=== PATIENT | female | born 1980 | race Two or more races ===

== ENCOUNTER 2017-02-14 07:13 | Outpatient (CLI) | payer MEDICAID | END 2017-02-14 07:14 | disposition home or self-care (01) | LOC: LAB.R 07:13 | PROVIDERS: ATTEND Family Medicine | DX: L98.8 Other specified disorders of the skin and subcutaneous tissue (principal) | CPT/HCPCS: 87070; 87077; 87205 ==

== ENCOUNTER 2017-04-01 10:19 | Day surgery (SDC) | payer MEDICAID ==
[2017-04-01] MEDS ORDERED: LACTATED RINGERS 1,000 ML IV ONE (10:36)
[2017-04-01 10:48] LABS: HCG UR QUAL NEGATIVE
[2017-04-01] MEDS ORDERED: LIDOCAINE-PF 2% 10 ML AMP SUBQ ONE (14:45)
[2017-04-01] MEDS ORDERED: SUCCINYLCHOLINE 200 MG/10 ML VIAL IVP ONE (14:45)
[2017-04-01] MEDS ORDERED: fentaNYL 100 MCG/2 ML VIAL IVP ONE (14:45)
[2017-04-01] MEDS ORDERED: DEXAMETHASONE 4 MG/ML VIAL IVP ONE (14:45)
[2017-04-01] MEDS ORDERED: ONDANSETRON 4 MG/2 ML VIAL IVP ONE (14:45)
[2017-04-01] MEDS ORDERED: PROPOFOL 200 MG/20 ML VIAL IVP ONE (14:45)
[2017-04-01] MEDS ORDERED: ROCURONIUM 50 MG/5 ML VIAL IVP ONE (14:45)
[2017-04-01] MEDS ORDERED: MIDAZOLAM 2 MG/2 ML VIAL IVP ONE (14:45)
[2017-04-01] MEDS ORDERED: BUPIVACAINE 0.5%-EPI 1:200000 PF 30 ML VIAL SUBQ ONE ×2 (15:05)
[2017-04-01] MEDS ORDERED: LIDOCAINE 1% 50 ML MDV SUBQ ONE ×2 (15:06)
[2017-04-01] MEDS ORDERED: HYDROGEN PEROXIDE 3% 473 ML BOTTLE TOP ONE (15:06)
[2017-04-01] MEDS ORDERED: THROMBIN (BOVINE) 5,000 UNIT VIAL TOP ONE (15:30)
[2017-04-01] MEDS ORDERED: ONDANSETRON 4 MG/2 ML VIAL ONE (15:53)
--- NOTE | 2017-04-01 15:59 | OPERATIVE REPORT ---
DATE OF SURGERY: 04/01/2017 00:00:00 SURGEON: Belkis Mtz MD. PREOPERATIVE DIAGNOSES 1. Perirectal fistula. 2. Anal skin tags. POSTOPERATIVE DIAGNOSES 1. Perirectal fistula. 2. Anal skin tags. NAME OF PROCEDURE: Excision of perirectal fistula and excision of rectal skin tags. INDICATION FOR PROCEDURE: This is a 36-year-old female who presented to my office complaining of drainage from her anus. Physical exam revealed a perirectal fistula and anal skin tag. She is being taken to the operating room for excision of the perirectal fissure and excision of anal skin tags. FINDINGS: After obtaining informed consent, she was brought into the operating room and positioned on the operating table in the prone position, taking note of pressure points. She was intubated by Anesthesia. SCD boots were applied. She was prepped and draped in the usual sterile fashion and a time-out was taken according to protocol. A fistulous opening was noted in the midline at the 12 o'clock position and a lacrimal probe was introduced. The external opening was also found in the midline in the 12 o'clock position. The fistulous tract was opened using electrocautery. Hemostasis was achieved with electrocautery. A single perianal skin tag was removed in the 12-o'clock position. She did have multiple perianal skin tags, but she also has underlying hemorrhoids and elected not to undergo hemorrhoidectomy. For this reason, these skin tags were not removed. The incisions were both closed with interrupted 3-0 Vicryl sutures, and 50 mL of local anesthetic was infiltrated. Hemostasis was noted to be achieved. Thrombin and Gelfoam were applied, as well as bacitracin and fluff and a dry dressing. The patient was extubated and taken to the recovery room in stable condition. ESTIMATED BLOOD LOSS: 10 mL. COMPLICATIONS: None. SPECIMENS: None. JOB #: [id number] EXT JOB #:[id number] [email or web address]
[2017-04-01] MEDS ORDERED: oxyCOD/ACETAMIN 5 MG/325 MG TABLET PO ONE (16:29)
[2017-04-01 16:44] VITALS: BP 135/82
== END 2017-04-01 10:20 | disposition home or self-care (01) ==
LOC: SDS 10:19
PROVIDERS: ATTEND Surgery
PROC: 0H89XZZ Division of Perineum Skin, External Approach (ICD-10-PCS; 2017-04-01)
PROC: 0DBQXZZ Excision of Anus, External Approach (ICD-10-PCS; principal; 2017-04-01 11:15)
DX: K60.4 Rectal fistula (principal); K64.4 Residual hemorrhoidal skin tags; F17.210 Nicotine dependence, cigarettes, uncomplicated
CPT/HCPCS: 46270; 81025; A9270; J7120

== ENCOUNTER 2017-05-06 07:52 | Outpatient (CLI) | payer OTHER ==
[2017-05-06 10:22] LABS: BASOPHILS # (AUTO) 0.1 10^3/uL (0.0-0.1); BASOPHILS % (AUTO) 0.8 %; EOSINOPHILS # (AUTO) 0.1 10^3/uL (0.0-0.7); HCT - HEMATOCRIT 36.3 % (37.0-47.0); HGB - HEMOGLOBIN 11.2 g/dL (12.0-16.0); LYMPHOCYTES # (AUTO) 4.1 10^3/uL (1.5-3.5); LYMPHOCYTES % (AUTO) 31.8 %; MEAN CORPUSCULAR HEMOGLOBIN 20.1 pg (27.0-31.0); MEAN CORPUSCULAR HGB CONC 30.7 g/dL (32.0-36.0); MEAN CORPUSCULAR VOLUME 65.5 fL (81.0-99.0); MEAN PLATELET VOLUME 8.3 fL (7.9-10.8); MONOCYTES % (AUTO) 8.1 %; NEUTROPHILS # (AUTO) 7.4 10^3/uL (1.5-6.6); NEUTROPHILS % (AUTO) 58.3 %; RED BLOOD COUNT 5.55 10^6/uL (4.20-5.40); UNCORRECTED WHITE BLOOD COUNT 12.7 x10^3/uL; WHITE BLOOD COUNT 12.7 x10^3/uL (4.8-10.8)
[2017-05-06 10:42] LABS: ALBUMIN/GLOBULIN RATIO 1.3 (1.0-2.2); BUN - BLOOD UREA NITROGEN 10 mg/dL (6-20); CALCIUM 8.9 mg/dL (8.5-10.3); CARBON DIOXIDE - CO2 23 mmol/L (21-32); CHLORIDE 103 mmol/L (101-111); CHOL/HDL RATIO 4.3 (<4.4); CHOLESTEROL 187 mg/dL; CREATININE 0.5 mg/dL (0.4-1.0); GFR - MDRD 141 (>89); GLUCOSE 91 mg/dL (70-100); HDL CHOLESTEROL 43 mg/dL; LDL/HDL RATIO 2.8 (<4.4); SODIUM 134 mmol/L (135-145); TOTAL PROTEIN 8.6 g/dL (6.7-8.2); TRIGLYCERIDES 118 mg/dL; VLDL CHOLESTEROL 24 mg/dL
== END 2017-05-06 07:53 | disposition home or self-care (01) ==
LOC: LAB 07:52
PROVIDERS: ATTEND Family Medicine
DX: Z00.00 Encounter for general adult medical examination without abnormal findings (principal); F17.210 Nicotine dependence, cigarettes, uncomplicated
CPT/HCPCS: 36415; 80053; 80061; 85025

== ENCOUNTER 2019-11-01 19:59 | Emergency (ER) | payer BC, OTHER ==
[2019-11-01 20:22] LABS: RAPID STREP SCREEN Negative (Negative)
--- NOTE | 2019-11-01 21:10 | ED Physician Documentation ---
PD HPI HEENT - Stated complaint Stated Complaint: SORE THROAT,COUGH, CONGESTION - Chief complaint Chief Complaint: Heent - History obtained from History obtained from: Patient - Additional information Additional information: Patient comes emergency department complaining of sore throat, cough, and headache for the last 2 days. Patient denies fever. She states that her elementary aged daughter has had similar symptoms, but is better now. Patient denies any nausea or vomiting. No abdominal pain. No chest pain. Patient states she is a smoker but otherwise is healthy. She does not have any known lung issues.Patient denies any sputum production with her cough. No other complaints at this time.She states she does not have any known exposures to influenza or coronavirus. She states her daughter has not been diagnosed with anything specifically and was told that she most likely has "a virus". Review of Systems Ten Systems: 10 systems reviewed and negative Constitutional: reports: Reviewed and negative Eyes: reports: Reviewed and negative Ears: reports: Reviewed and negative Nose: reports: Rhinorrhea / runny nose, Congestion Throat: reports: Sore throat Cardiac: reports: Reviewed and negative Respiratory: reports: Cough GI: reports: Reviewed and negative : reports: Reviewed and negative Skin: reports: Reviewed and negative Musculoskeletal: reports: Reviewed and negative Neurologic: reports: Reviewed and negative Psychiatric: reports: Reviewed and negative Endocrine: reports: Reviewed and negative Immunocompromised: reports: Reviewed and negative PD PAST MEDICAL HISTORY - Past Medical History Past Medical History: Yes Cardiovascular: Hypertension Respiratory: None Endocrine/Autoimmune: None GI: GERD, Hemorrhoids : None HEENT: Chronic vision loss Psych: None Musculoskeletal: None Derm: Eczema - Past Surgical History General: 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 - Present Medications Home Medications: Ambulatory Orders Medication Instructions Recorded Confirmed No Known Home Medications 03/25/17 03/25/17 - Allergies Allergies/Adverse Reactions: Allergies Allergy/AdvReac Type Severity Reaction Status Date / Time citrus AdvReac Unknown Uncoded 11/01/19 20:03 - Social History Does the pt smoke?: Yes Smoking Status: Current every day smoker Does the pt drink ETOH?: No Does the pt have substance abuse?: No - Immunizations Immunizations are current?: Yes - POLST Patient has POLST: No PD ED PE NORMAL - Vitals Vital signs reviewed: Yes - General General: Alert and oriented X 3, No acute distress - HEENT HEENT: Atraumatic, PERRL, EOMI, Moist mucous membranes, Pharynx benign - Neck Neck: Supple, no meningeal sign - Cardiac Cardiac: RRR, No murmur - Respiratory Respiratory: No respiratory distress, Clear bilaterally - Abdomen Abdomen: Soft, Non tender, Non distended - Derm Derm: Normal color, Warm and dry, No rash - Extremities Extremities: No deformity, No edema - Neuro Neuro: Alert and oriented X 3, perinatal specialist 2-12 intact - Psych Psych: Normal mood, Normal affect Results - Vitals Vitals: Vital Signs - 24 hr 11/01/19 11/01/19 20:03 22:00 Temperature 37.2 C 36.8 C Heart Rate 84 75 Respiratory 14 16 Rate Blood Pressure 142/80 H 121/83 H O2 Saturation 100 99 Oxygen O2 Source Room air - Labs Labs: Laboratory Tests 11/01/19 11/01/19 20:05 21:30 Influenza A (Rapid) Negative Influenza B (Rapid) Negative Group A Strep Rapid Negative - Rads (name of study) Chest x-ray Radiology: Final report received, EMP read indepedently, See rad report (Normal) PD MEDICAL DECISION MAKING - ED course Complexity details: reviewed results, re-evaluated patient, considered differential, d/w patient ED course: Patient was fairly well-appearing in the emergency department and was worked up with strep test,chest x-ray and influenza testing, all of which were negative.I discussed with the patient that she most likely has 1 of the many viruses that are going around at this time. We have discussed that if the patient develops a fever with ongoing symptoms, she will need to be reevaluated.We have discussed home management of the symptoms, as well as usual indications for return. Departure - Departure Disposition: 01 Home, Self Care Clinical Impression: Viral syndrome Condition: Fair Instructions: ED Viral Syndrome Comments: Your strep test, chest x-ray, and influenza tests are all negative. You most likely have 1 of the many viruses that go around this time of year and cause the symptoms that you have. At this point in time, your risk of having coronavirus is low. You may use ibuprofen and or Tylenol as needed for discomfort. Please drink plenty of fluids and get rest. If you develop high fevers, please seek medical reevaluation. Discharge Date/Time: 11/01/19 22:06
--- NOTE | 2019-11-01 21:28 | XRAY Report ---
Reason: cough Procedure Date: 11/01/2019 Accession Number: [id number] / [id number] Procedure: XR - Chest 2 View X-Ray CPT Code: 29834 Final Report FULL RESULT: EXAM: CHEST RADIOGRAPHY EXAM DATE: 11/01/2019 09:23 PM. CLINICAL HISTORY: Cough and shortness of breath for 3 days. COMPARISON: None. TECHNIQUE: 2 views. FINDINGS: Lungs/Pleura: No focal opacities evident. No pleural effusion. No pneumothorax. Normal volumes. Mediastinum: Heart and mediastinal contours are unremarkable. Other: No fractures identified. IMPRESSION: Normal 2-view chest radiography. [facility]
[2019-11-01 22:06] VITALS: BP 121/83
== END 2019-11-01 22:06 | disposition home or self-care (01) ==
LOC: ED 19:59
DX: B34.9 Viral infection, unspecified (principal); I10 Essential (primary) hypertension; F17.210 Nicotine dependence, cigarettes, uncomplicated
CPT/HCPCS: 71046; 87070; 87275; 87276; 87430; 99283; 99284

== ENCOUNTER 2021-05-17 08:00 | Outpatient (CLI) | payer BC | END 2021-05-17 23:59 | disposition home or self-care (01) | LOC: LAB.N 08:00 | PROVIDERS: ATTEND Family Medicine | DX: B34.9 Viral infection, unspecified (principal); Z20.822 Contact with and (suspected) exposure to COVID-19 ==

== ENCOUNTER 2023-05-20 08:00 | Outpatient (CLI) | payer BC | END 2023-05-20 23:59 | disposition home or self-care (01) | LOC: LAB.N 08:00 | PROVIDERS: ATTEND Family Medicine | DX: T25.321D Burn of third degree of right foot, subsequent encounter (principal) | CPT/HCPCS: 87070; 87077; 87181; 87205 ==

== ENCOUNTER 2023-07-02 15:53 | Outpatient (CLI) | payer BC ==
[2023-07-02 16:21] LABS: BASOPHILS % (AUTO) 0.5 %; EOSINOPHILS % (AUTO) 1.7 %; HCT - HEMATOCRIT 35.3 % (37.0-47.0); HGB - HEMOGLOBIN 10.7 g/dL (12.0-16.0); LYMPHOCYTES % (AUTO) 43.2 %; MEAN CORPUSCULAR HEMOGLOBIN 21.7 pg (27.0-31.0); MEAN CORPUSCULAR HGB CONC 30.3 g/dL (32.0-36.0); MEAN CORPUSCULAR VOLUME 71.5 fL (81.0-99.0); MEAN PLATELET VOLUME 9.5 fL (7.9-10.8); MONOCYTES % (AUTO) 7.1 %; NEUTROPHILS % (AUTO) 47.1 %; PLT - PLATELET COUNT 402 10^3/uL (130-450); RED BLOOD COUNT 4.94 10^6/uL (4.20-5.40); RED CELL DISTRIBUTION WIDTH 17.8 % (12.0-15.0); RETICULOCYTE COUNT % (AUTO) 1.01 % (0.5-2.3); WHITE BLOOD COUNT 11.3 x10^3/uL (4.8-10.8)
[2023-07-02 16:24] LABS: ABNORMAL LYMPHS % (MANUAL) 0 %; BAND NEUTROPHILS % (MANUAL) 0 %
[2023-07-02 16:55] LABS: FERRITIN 3.2 ng/mL (11.0-306.8)
[2023-07-02 17:17] LABS: LYMPHOCYTES # (MANUAL) 5.2 10^3/uL (1.5-3.5); LYMPHOCYTES % (MANUAL) 46 %; MONOCYTES # (MANUAL) 0.3 10^3/uL (0.0-1.0); NEUTROPHILS # (MANUAL) 5.8 10^3/uL (1.5-6.6)
[2023-07-02 17:18] LABS: DIFFERENTIAL COMMENT MANUAL DIFFERENTIAL; PLATELET ESTIMATE, MANUAL NORMAL (130-450,000) (NORMAL); PLATELET MORPHOLOGY NORMAL APPEARANCE (NORMAL)
== END 2023-07-02 15:54 | disposition home or self-care (01) ==
LOC: LAB 15:53
PROVIDERS: ATTEND Family Medicine
DX: D64.9 Anemia, unspecified (principal); T25.321A Burn of third degree of right foot, initial encounter; L08.9 Local infection of the skin and subcutaneous tissue, unspecified
CPT/HCPCS: 36415; 81599; 82728; 83020; 83540; 84466; 85025; 85045

== ENCOUNTER 2023-07-03 16:35 | Outpatient (CLI) | payer BC ==
--- NOTE | 2023-07-04 08:36 | XRAY Report ---
PROCEDURE: Calcaneus RT INDICATIONS: EVAL FOR OSTEOMYLITIS TECHNIQUE: Two views of the calcaneus were acquired. COMPARISON: X-ray right foot 03/10/2023. FINDINGS: Bones: No fractures or dislocations. Mild posterior calcaneal spurring. No suspicious bony lesions. Soft tissues: No suspicious calcifications. Achilles tendon appears normal. IMPRESSION: No acute bony abnormality. Radiographs are not sensitive for early osteomyelitis. If clinical suspici on persists, consider MRI with and without contrast or triple phase bone scan for further evaluation. Reviewed by: Dionte Sidhu MD on 07/04/2023 8:35 AM PST Approved by: Dionte Sidhu MD on 07/04/2023 8:35 AM PST Station ID: [id number]
--- NOTE | 2023-07-04 08:37 | XRAY Report ---
PROCEDURE: Foot 3 View RT INDICATIONS: RIGHT FOOT PAIN TECHNIQUE: 3 views of the foot were acquired. COMPARISON: None. FINDINGS: Bones: No fractures or dislocations. No suspicious bony lesions. Soft tissues: No suspicious soft tissue calcifications or masses. IMPRESSION: No acute bony abnormality. Radiographs are not sensitive for early osteomyelitis. If clinical suspici on persists, consider MRI with and without contrast or triple phase bone scan for further evaluation. Reviewed by: Dionte Sidhu MD on 07/04/2023 8:36 AM PST Approved by: Dionte Sidhu MD on 07/04/2023 8:36 AM PST Station ID: [id number]
== END 2023-07-03 16:36 | disposition home or self-care (01) ==
LOC: DI 16:35
PROVIDERS: ATTEND Family Medicine
DX: T25.321A Burn of third degree of right foot, initial encounter (principal); M77.31 Calcaneal spur, right foot

== ENCOUNTER 2023-07-23 10:38 | Observation (INO) | payer BC ==
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
[2023-07-23] MEDS ORDERED: HYDROmorphone 1 MG/ML CARPUJECT IVP STA ×2 (12:18→15:22)
[2023-07-23 12:35] LABS: BASOPHILS % (AUTO) 0.4 %; EOSINOPHILS % (AUTO) 0.1 %; HCT - HEMATOCRIT 30.9 % (37.0-47.0); HGB - HEMOGLOBIN 9.3 g/dL (12.0-16.0); LYMPHOCYTES % (AUTO) 14.6 %; MEAN CORPUSCULAR HEMOGLOBIN 21.2 pg (27.0-31.0); MEAN CORPUSCULAR HGB CONC 30.1 g/dL (32.0-36.0); MEAN CORPUSCULAR VOLUME 70.4 fL (81.0-99.0); MEAN PLATELET VOLUME 9.5 fL (7.9-10.8); MONOCYTES % (AUTO) 9.2 %; NEUTROPHILS % (AUTO) 74.9 %; PLT - PLATELET COUNT 405 10^3/uL (130-450); RED BLOOD COUNT 4.39 10^6/uL (4.20-5.40); RED CELL DISTRIBUTION WIDTH 16.8 % (12.0-15.0); WHITE BLOOD COUNT 20.6 x10^3/uL (4.8-10.8)
[2023-07-23 12:42] LABS: ABNORMAL LYMPHS % (MANUAL) 0 %; BAND NEUTROPHILS % (MANUAL) 0 %
[2023-07-23] MEDS ORDERED: cefTRIAXone 1 GM VIAL IVP STA ×2 (12:49→14:03)
[2023-07-23] MEDS ORDERED: VANCOMYCIN INJ 1 GM, VANCOMYCIN INJ 250 MG in SODIUM CHLORIDE 0.9% 250 ML IV STA (12:50)
[2023-07-23 12:51] LABS: CALCIUM 9.2 mg/dL (8.5-10.3); CREATININE 0.7 mg/dL (0.6-1.3)
[2023-07-23 13:10] LABS: BASOPHILS # (MANUAL) 0.2 10^3/uL (0-0.1); BASOPHILS % (MANUAL) 1 %; DIFFERENTIAL COMMENT MANUAL DIFFERENTIAL; LYMPHOCYTES # (MANUAL) 3.7 10^3/uL (1.5-3.5); LYMPHOCYTES % (MANUAL) 11 %; MONOCYTES # (MANUAL) 0.6 10^3/uL (0.0-1.0); NEUTROPHILS # (MANUAL) 16.1 10^3/uL (1.5-6.6); PLATELET ESTIMATE, MANUAL NORMAL (130-450,000) (NORMAL); RBC MORPHOLOGY (MULTIPLE) 3+ ANISOCYTOSIS (NORMAL); REACTIVE LYMPHS % (MANUAL) 7 %
[2023-07-23] MEDS ORDERED: iohexoL-300 100 ML VIAL IVP ONE (13:46)
[2023-07-23] MEDS ORDERED: SODIUM CHLORIDE 0.9% 1,000 ML IV STA (14:08)
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
--- NOTE | 2023-07-23 14:40 | CT Report ---
PROCEDURE: PELVIS W INDICATIONS: perirectal swelling, pain CONTRAST: 100ml omni 300 TECHNIQUE: After the administration of intravenous contrast, a CT scan of the pelvis was performed. Images were recorded and evaluated at appropriate window settings. Reformats: axial MIP of the chest, coronal an d sagittal. For radiation dose reduction, the following was used: automated exposure control, adjustm ent of mA and/or kV according to patient size. COMPARISON: None FINDINGS: Image quality: Excellent. Bowel and peritoneum: No bowel distension. No pathologic free fluid. Vessels: No infrarenal aortic aneurysm. Reproductive organs: Small uterine fibroid. Left labial abscess. No adnexal mass.. Bladder: No abnormal wall thickening, accounting for underdistention. Pelvic lymph nodes: No pelvic adenopathy by size criteria. Bones: No aggressive osseous abnormality. Other: There is a prominent urethral diverticulum/urethrocele, with a classic configuration, immediately pos terior to the symphysis pubis. Reference axial image 3 of series 8 as well as sagittal image 41 of se carol 11. There is a left labial abscess which measures approximately 2.7 x 2.2 x 3.6 cm. Reference sagittal im age 36 of series 11 and axial image 60 of series 2. There is a large subcutaneous medial left buttock abscess, measuring 6.5 x 6.8 x 5.7 cm. Reference co delicia image 64 of sagittal image 11, sagittal image 32 of series 11, and axial image 59 of series 8. IMPRESSION: 1. A low-density structure immediately posterior to the symphysis pubis represents a urethral diverti culum/urethrrocele. This should not be confused for an abscess. 2. Left labial abscess. 3. Large medial left buttock subcutaneous abscess. Comment: Of note, there is no gas present within the infected collections. No findings suspicious for Rene's gangrene. Reviewed by: Jack Wayne MD on 07/23/2023 2:39 PM PST Approved by: Jack Wayne MD on 07/23/2023 2:39 PM PST Station ID: [id number]
[2023-07-23] MEDS ORDERED: HEPARIN 5,000 UNIT/ML VIAL SUBQ SCH (15:00)
[2023-07-23] MEDS ORDERED: LIDOCAINE-PF 2% 10 ML AMP SUBQ ONE (15:10)
[2023-07-23] MEDS ORDERED: PROPOFOL 200 MG/20 ML VIAL IVP ONE ×2 (15:10→17:36)
[2023-07-23] MEDS ORDERED: fentaNYL 100 MCG/2 ML VIAL ONE (15:11)
[2023-07-23] MEDS ORDERED: ONDANSETRON 4 MG/2 ML VIAL ONE (15:11)
[2023-07-23] MEDS ORDERED: DEXAMETHASONE 4 MG/ML VIAL ONE (15:11)
[2023-07-23] MEDS ORDERED: MIDAZOLAM 2 MG/2 ML VIAL ONE (15:11)
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
[2023-07-23 15:58] LABS: HCG,QUALITATIVE BLOOD NEGATIVE
[2023-07-23] MEDS: metroNIDAZOLE 500 MG/100 ML 500 MG/100 ML BAG IV SCH ×2 (16:38→22:33)
[2023-07-23] MEDS ORDERED: HYDROmorphone 1 MG/ML CARPUJECT ONE (17:41)
[2023-07-23] MEDS ORDERED: ACETAMINOPHEN 1,000 MG/100 ML 1,000 MG/100 ML BAG IV ONE (17:44)
[2023-07-23] MEDS ORDERED: LACTATED RINGERS 1,000 ML IV SCH ×2 (18:00→19:00)
[2023-07-23] MEDS ORDERED: LACTATED RINGERS 1,000 ML IV ONE (18:03)
[2023-07-23] MEDS ORDERED: NALOXONE 0.4 MG/ML VIAL IVP PRN (18:04)
[2023-07-23] MEDS ORDERED: ePHEDrine 50 MG/ML VIAL IVP PRN (18:04)
[2023-07-23] MEDS ORDERED: fentaNYL 100 MCG/2 ML VIAL IVP PRN (18:04)
[2023-07-23] MEDS ORDERED: METOCLOPRAMIDE 10 MG/2 ML VIAL IVP PRN (18:04)
[2023-07-23] MEDS ORDERED: ATROPINE ABBOJECT 1 MG/10 ML SYRINGE IVP PRN (18:04)
[2023-07-23] MEDS ORDERED: HYDROmorphone 0.5 MG/0.5 ML SYRINGE IVP PRN (18:04)
[2023-07-23] MEDS ORDERED: MORPHINE 2 MG/ML CARPUJECT IVP PRN (18:04)
[2023-07-23] MEDS ORDERED: ONDANSETRON 4 MG/2 ML VIAL IVP PRN (18:04)
--- NOTE | 2023-07-23 18:32 | OPERATIVE REPORT ---
Operative Report - Other Other Information/Narrative: PROCEDURE DATE: 07/23/2023 PREOPERATIVE DIAGNOSIS: Tamiko is a 42 year old female with a multiloculated left ischiorectal abscess on the left buttocks. She is taken to the operating room for I&D of this abscess. POSTOPERATIVE DIAGNOSIS: Left ischiorectal abscess, no evidence of a left vulva abscess NAME OF PROCEDURE: Incision and drainage of left ischiorectal abscess SURGEON: Simon Worrell MD SENIOR PARALEGAL SURGEON: None ANESTHESIA: General endotracheal. ESTIMATED BLOOD LOSS: 10 mL. DRAINS: None SPECIMEN: Cultures of purulence COMPLICATIONS None FINDINGS: 7 cm long, 6 cm wide and 7 cm deep left ischiorectal abscess without evidence of soft tissue necrosis; No evidence of a left vulva abscess DESCRIPTION OF OPERATION: After consent for the procedure was obtained, the patient was brought to the operating room where in the supine position, general endotracheal anesthesia was administered. A surgical time-out was performed, indicating the patient and the procedure to be performed. The patient was placed into the high lithotomy position with a rolled towel under her buttocks. The right and left gluteal regions were prepped with alcohol-free betadine and draped in a sterile fashion. A 3 cm incision radial incision over the most fluctuant area on the left buttocks was made and the subcutaneous abscess cavity entered. Purulence was evacuated and cultured. Digital exploration of the cavity disrupted loculations. The abscess cavity was 7 cm long, 6 cm wide and 7 cm deep. The cavity was then cleansed with 1 liter of saline using a Aysha syringe. Reinspection of the cavity revealed no evidence of bleeding. A 1" wide non- iodine impregnated gauze rolled wick was placed into the cavity and covered with an absorbant pad which was secured in place with a surgical undergarment. The patient was awakened from general anesthesia. She tolerated the procedure well and was brought to the recovery room with stable vital signs.
[2023-07-23] MEDS: KETOROLAC 30 MG/ML VIAL IVP SCH (19:10)
[2023-07-23] MEDS: SODIUM CHLORIDE FLUSH 0.9% 10 ML SYRINGE IVP SCH (19:10)
[2023-07-23] MEDS: HYDROmorphone 0.5 MG/0.5 ML SYRINGE IVP PRN (21:28)
[2023-07-23] MEDS: HEPARIN 5,000 UNIT/ML VIAL SUBQ SCH (21:29)
[2023-07-23] MEDS: SODIUM CHLORIDE FLUSH 0.9% 10 ML SYRINGE IVP PRN (23:46)
[2023-07-24] MEDS: KETOROLAC 30 MG/ML VIAL IVP SCH ×4 (00:27→18:21)
[2023-07-24] MEDS: SODIUM CHLORIDE FLUSH 0.9% 10 ML SYRINGE IVP SCH ×3 (00:28→16:11)
[2023-07-24] MEDS: HYDROmorphone 0.5 MG/0.5 ML SYRINGE IVP PRN ×3 (04:56→11:15)
[2023-07-24] MEDS: SODIUM CHLORIDE FLUSH 0.9% 10 ML SYRINGE IVP PRN (04:57)
[2023-07-24] MEDS ORDERED: CETIRIZINE 10 MG TABLET PO PRN (05:38)
[2023-07-24 05:46] LABS: BASOPHILS % (AUTO) 0.3 %; HCT - HEMATOCRIT 28.8 % (37.0-47.0); HGB - HEMOGLOBIN 8.7 g/dL (12.0-16.0); LYMPHOCYTES % (AUTO) 6.9 %; MEAN CORPUSCULAR HEMOGLOBIN 21.9 pg (27.0-31.0); MEAN CORPUSCULAR HGB CONC 30.2 g/dL (32.0-36.0); MEAN CORPUSCULAR VOLUME 72.5 fL (81.0-99.0); MEAN PLATELET VOLUME 9.4 fL (7.9-10.8); MONOCYTES % (AUTO) 3.4 %; NEUTROPHILS % (AUTO) 88.6 %; PLT - PLATELET COUNT 390 10^3/uL (130-450); RED BLOOD COUNT 3.97 10^6/uL (4.20-5.40); RED CELL DISTRIBUTION WIDTH 17.4 % (12.0-15.0); WHITE BLOOD COUNT 22.5 x10^3/uL (4.8-10.8)
[2023-07-24 05:53] LABS: ABNORMAL LYMPHS % (MANUAL) 0 %
[2023-07-24 06:00] LABS: CALCIUM 8.7 mg/dL (8.5-10.3); CREATININE 0.5 mg/dL (0.6-1.3); POTASSIUM 3.8 mmol/L (3.5-4.5)
[2023-07-24 06:24] LABS: BAND NEUTROPHILS % (MANUAL) 3 %; DIFFERENTIAL COMMENT MANUAL DIFFERENTIAL; EOSINOPHILS # (MANUAL) 0.2 10^3/uL (0-0.7); LYMPHOCYTES # (MANUAL) 2.9 10^3/uL (1.5-3.5); LYMPHOCYTES % (MANUAL) 13 %; NEUTROPHILS # (MANUAL) 17.3 10^3/uL (1.5-6.6); PLATELET ESTIMATE, MANUAL NORMAL (130-450,000) (NORMAL)
[2023-07-24] MEDS: metroNIDAZOLE 500 MG/100 ML 500 MG/100 ML BAG IV SCH ×2 (06:34→16:10)
[2023-07-24] MEDS ORDERED: oxyCODONE 5 MG TABLET PO PRN (07:00)
[2023-07-24] MEDS ORDERED: MULTIVITAMIN TABLET PO SCH (08:00)
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
[2023-07-24] MEDS: HEPARIN 5,000 UNIT/ML VIAL SUBQ SCH (08:12)
[2023-07-24] MEDS ORDERED: cefTRIAXone 2 GM in SODIUM CHLORIDE 0.9% MINIBAG 100 ML IV SCH (09:00)
--- NOTE | 2023-07-24 11:32 | PROVIDER PROGRESS NOTE ---
Subjective - General Admit Date: 07/23/23 - Other Other Information/Narrative: General Surgery Progress Note Gauze pack removed at bedside without difficulty. Wound clean and without purulence. 1/2 of a rolled 4 x 4 gauze placed into the wound to deter premature epidermal closure. Patient tolerated the procedure well. Regular diet started. Reggie Worrell MD General Surgery Service Objective - Patient Data Vital Signs: Vital Signs x48h Temp Pulse Resp BP Pulse Ox 07/24/23 08:23 97.5 F L 64 16 120/64 93 07/24/23 04:45 97.2 F L 61 16 114/68 99 Weight: Weight 07/22/23 07/23/23 07/24/23 23:59 23:59 23:59 Weight (kg) 85.729 kg Intake & Output: Intake and Output Totals x24h 07/22/23 07/23/23 07/24/23 23:59 23:59 23:59 Intake Total 2500 200 Balance 2500 200 - Lab Results Lab Results: 07/24/23 05:26 07/24/23 05:26 Other Lab Results: Lab Results x24hrs 07/24/23 07/24/23 07/23/23 Range/Units 05:26 05:26 12:30 WBC 22.5 H (4.8-10.8) x10^3/uL RBC 3.97 L (4.20-5.40) 10^6/uL Hgb 8.7 L (12.0-16.0) g/dL Hct 28.8 L (37.0-47.0) % MCV 72.5 L (81.0-99.0) fL MCH 21.9 L (27.0-31.0) pg MCHC 30.2 L (32.0-36.0) g/dL RDW 17.4 H (12.0-15.0) % Plt Count 390 (130-450) 10^3/uL MPV 9.4 (7.9-10.8) fL Neut # (Auto) Not Reportable Lymph # (Auto) Not Reportable [place] # (Auto) Not Reportable Eos # (Auto) Not Reportable Baso # (Auto) Not Reportable Absolute Nucleated RBC Not Reportable Total Counted 100 Band Neuts % (Manual) 3 (0 - 10) % Reactive Lymphs % (Man) % Abnorm Lymph % (Manual) 0 % Nucleated RBC % Not Reportable Neutrophils # (Manual) 17.3 H (1.5-6.6) 10^3/uL Lymphocytes # (Manual) 2.9 (1.5-3.5) 10^3/uL Monocytes # (Manual) 2.0 H (0.0-1.0) 10^3/uL Eosinophils # (Manual) 0.2 (0-0.7) 10^3/uL Basophils # (Manual) 0.0 (0-0.1) 10^3/uL Differential Comment MANUAL DIFFERENTIAL Platelet Estimate NORMAL (130-450,000) (NORMAL) RBC Morph Micro Appear 2+ MICROCYTOSIS (NORMAL) Sodium 135 (135-145) mmol/L Potassium 3.8 (3.5-4.5) mmol/L Chloride 101 (101-111) mmol/L Carbon Dioxide 25 (21-32) mmol/L Anion Gap 9.0 (6-13) BUN 8 (6-20) mg/dL Creatinine 0.5 L (0.6-1.3) mg/dL Estimated GFR (MDRD) 137 (>89) Glucose 129 H (74-104) mg/dL Calcium 8.7 (8.5-10.3) mg/dL Serum HCG, Qual NEGATIVE 07/23/23 07/23/23 Range/Units 12:30 12:30 WBC 20.6 H (4.8-10.8) x10^3/uL RBC 4.39 (4.20-5.40) 10^6/uL Hgb 9.3 L (12.0-16.0) g/dL Hct 30.9 L (37.0-47.0) % MCV 70.4 L (81.0-99.0) fL MCH 21.2 L (27.0-31.0) pg MCHC 30.1 L (32.0-36.0) g/dL RDW 16.8 H (12.0-15.0) % Plt Count 405 (130-450) 10^3/uL MPV 9.5 (7.9-10.8) fL Neut # (Auto) Not Reportable Lymph # (Auto) Not Reportable [place] # (Auto) Not Reportable Eos # (Auto) Not Reportable Baso # (Auto) Not Reportable Absolute Nucleated RBC Not Reportable Total Counted 100 Band Neuts % (Manual) 0 (0 - 10) % Reactive Lymphs % (Man) 7 % Abnorm Lymph % (Manual) 0 % Nucleated RBC % Not Reportable Neutrophils # (Manual) 16.1 H (1.5-6.6) 10^3/uL Lymphocytes # (Manual) 3.7 H (1.5-3.5) 10^3/uL Monocytes # (Manual) 0.6 (0.0-1.0) 10^3/uL Eosinophils # (Manual) 0.0 (0-0.7) 10^3/uL Basophils # (Manual) 0.2 H (0-0.1) 10^3/uL Differential Comment MANUAL DIFFERENTIAL Platelet Estimate NORMAL (130-450,000) (NORMAL) RBC Morph Micro Appear 3+ ANISOCYTOSIS (NORMAL) Sodium 134 L (135-145) mmol/L Potassium 3.0 L (3.5-4.5) mmol/L Chloride 100 L (101-111) mmol/L Carbon Dioxide 27 (21-32) mmol/L Anion Gap 7.0 (6-13) BUN 7 (6-20) mg/dL Creatinine 0.7 (0.6-1.3) mg/dL Estimated GFR (MDRD) 93 (>89) Glucose 111 H (74-104) mg/dL Calcium 9.2 (8.5-10.3) mg/dL Serum HCG, Qual - Current Medications Current Medications: Current Medications Generic Name Dose Route Start Last Admin Trade Name Freq PRN Reason Stop Dose Admin Heparin Sodium (Porcine) 5,000 unit 07/23/23 21:00 07/24/23 08:12 Heparin 5,000 Unit/Ml Vial SUBQ 5,000 unit BID DANA Administration Hydromorphone HCl 0.5 mg 07/23/23 17:56 07/24/23 11:15 Hydromorphone 0.5 Mg/0.5 Ml Syringe IVP 0.5 mg Q2H PRN Administration Severe Pain (Level 7-10) Metronidazole 500 mg in 100 mls @ 100 mls/hr 07/23/23 15:00 07/24/23 07:45 Flagyl 500 Mg/100 Ml IV Infused Q8H DANA Infusion Ceftriaxone Sodium 2 gm/ 100 mls @ 200 mls/hr 12/07/23 09:00 07/24/23 09:31 Sodium Chloride IV 07/29/23 08:59 Infused DAILY DANA Infusion Ketorolac Tromethamine 30 mg 07/23/23 18:00 07/24/23 06:33 Ketorolac 30 Mg/Ml Vial IVP 07/24/23 18:01 30 mg Q6HR DANA Administration Multivitamins 1 tab 07/24/23 08:00 07/24/23 08:11 Multivitamin Tablet PO 1 tab DAILYWM DANA Administration Sodium Chloride 10 ml 07/23/23 17:00 07/24/23 08:12 Sodium Chloride Flush 0.9% 10 Ml Syringe IVP 10 ml 0100,0900,1700 DANA Administration Sodium Chloride 10 ml 07/23/23 14:34 07/24/23 04:57 Sodium Chloride Flush 0.9% 10 Ml Syringe IVP 10 ml PRN PRN Administration NEEDED PER PROVIDER ORDERS
--- NOTE | 2023-07-24 11:36 | PHARMACY PROGRESS NOTE ---
- Best Possible Medication History Admit Date and Time: 07/23/23 1800 Processed by: Nursing As the person ultimately responsible for medication therapy, providers are able to order a medication from an existing home medication list in [facility] via the "Reconcile Routine" prior to Confirmation of that medication by client support manager. Such practice is discouraged except when the physician, in their clinical judgment, deems that a medical need exists for a medication without regard to previous use.
--- NOTE | 2023-07-24 17:24 | Discharge Plan ---
Discharge Plan Problem Reviewed?: Yes Disposition: Home, Self Care Condition: Good Prescriptions: Amox/Clav 875/125 [Augmentin 875/125 Tab] 1 tablet PO Q12H 5 Days #10 tablet Diet: Regular Activity Restrictions: Activity as Tolerated Shower Restrictions: No (See Instructions) Driving Restrictions: No (No driving while on narcotics) Instruction Topics: Perianal Abscess Additional Instructions or Follow Up instructions: 1) Diet as tolerated 2) Activity no work tomorrow but you may return to work on Friday 3) Wound care wash the wound gently with soap and water daily in shower. Try to place a short segment of gauze into the wound to prevent the skin from healing too quickly. Non-adherent gauze rolled into a small cylinder would work. 4) Antibiotics Augmentin 875 mg PO BID for 5 days 5) A member of the clinic staff will contact you tomorrow to make arrangements for follow-up next week No Smoking: If you smoke, Please STOP! Call for help.
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
[2023-07-24 19:26] VITALS: BP 118/67; O2SAT 98
--- NOTE | 2023-07-28 08:59 | ANESTHESIA POST OP EVALUATION ---
Anesthesia Post Eval - Post Anesthesia Eval Vitals: Last Vital Signs Temp 35.9 C L 07/24/23 17:00 Pulse 68 07/24/23 17:00 Resp 16 07/24/23 17:00 BP 118/67 07/24/23 17:00 Pulse Ox 98 07/24/23 17:00 O2 Flow Rate CV Function Including HR & BP: Stable Pain Control: Satisfactory Nausea & Vomiting: Negative Mental Status: Baseline Respiratory Status: Airway Patent Hydration Status: Satisfactory Anesthesia Complications: None
== END 2023-07-24 20:04 | disposition home or self-care (01) ==
LOC: ED 10:38 → SDS 15:07 → MS3 18:00
PROVIDERS: ADMIT Surgery; ATTEND Surgery
PROC: 0J9B0ZZ Drainage of Perineum Subcutaneous Tissue and Fascia, Open Approach (ICD-10-PCS; principal; 2023-07-23 17:00)
DX: K61.39 Other ischiorectal abscess (principal); S91.301D Unspecified open wound, right foot, subsequent encounter; V29.99XD Rider (driver) (passenger) of other motorcycle injured in unspecified traffic accident, subsequent encounter; I10 Essential (primary) hypertension; J45.909 Unspecified asthma, uncomplicated; K21.9 Gastro-esophageal reflux disease without esophagitis; R53.1 Weakness; F17.200 Nicotine dependence, unspecified, uncomplicated; E66.9 Obesity, unspecified; Z68.32 Body mass index [BMI] 32.0-32.9, adult
CPT/HCPCS: 36415; 46040; 72193; 80048; 84703; 85025; 87070; 87205; 96365; 96366; 96375; 96376; 99284; 99285; A9270; J0131; J1170; J3370; J7120; Q9967; 82947

== ENCOUNTER 2023-08-06 16:59 | Outpatient (CLI) | payer BC | END 2023-08-06 17:00 | disposition home or self-care (01) | LOC: LAB 16:59 | PROVIDERS: ATTEND Nurse Practitioner Family | DX: D50.9 Iron deficiency anemia, unspecified (principal) ==

== ENCOUNTER 2023-08-22 17:01 | Outpatient (CLI) | payer BC ==
[2023-08-22 17:28] LABS: BASOPHILS # (AUTO) 0.1 10^3/uL (0.0-0.1); BASOPHILS % (AUTO) 0.8 %; EOSINOPHILS # (AUTO) 0.2 10^3/uL (0.0-0.7); EOSINOPHILS % (AUTO) 1.9 %; HGB - HEMOGLOBIN 9.7 g/dL (12.0-16.0); LYMPHOCYTES # (AUTO) 3.8 10^3/uL (1.5-3.5); LYMPHOCYTES % (AUTO) 39.4 %; MEAN CORPUSCULAR HEMOGLOBIN 21.2 pg (27.0-31.0); MEAN CORPUSCULAR HGB CONC 29.4 g/dL (32.0-36.0); MEAN CORPUSCULAR VOLUME 72.1 fL (81.0-99.0); MEAN PLATELET VOLUME 9.4 fL (7.9-10.8); MONOCYTES # (AUTO) 0.7 10^3/uL (0.0-1.0); MONOCYTES % (AUTO) 7.4 %; NEUTROPHILS # (AUTO) 4.8 10^3/uL (1.5-6.6); NEUTROPHILS % (AUTO) 50.2 %; PLT - PLATELET COUNT 411 10^3/uL (130-450); RED BLOOD COUNT 4.58 10^6/uL (4.20-5.40); RED CELL DISTRIBUTION WIDTH 18.7 % (12.0-15.0); WHITE BLOOD COUNT 9.6 x10^3/uL (4.8-10.8)
[2023-08-22 18:04] LABS: FERRITIN 6.8 ng/mL (11.0-306.8)
[2023-08-22 20:19] LABS: CHLAMYDIA TRACHOMATIS DNA NEGATIVE (NEGATIVE); NEISSERIA GONORRHOEAE DNA NEGATIVE (NEGATIVE)
[2023-08-22 22:08] LABS: BACTERIAL VAGINOSIS DNA POSITIVE (NEGATIVE); CANDIDA GLABRATA DNA NEGATIVE (NEGATIVE); CANDIDA GROUP DNA NEGATIVE (NEGATIVE); CANDIDA KRUSEI DNA NEGATIVE (NEGATIVE); TRICHOMONAS VAGINALIS DNA NEGATIVE (NEGATIVE)
[2023-08-23 03:14] LABS: HCV AB Non Reactive (Non Reactive)
[2023-08-23 04:32] LABS: HIV SCREEN 4TH GENERATION Non Reactive (Non Reactive)
== END 2023-08-22 17:02 | disposition home or self-care (01) ==
LOC: LAB 17:01
PROVIDERS: ATTEND Nurse Practitioner Family
DX: D50.9 Iron deficiency anemia, unspecified (principal); Z11.3 Encounter for screening for infections with a predominantly sexual mode of transmission
CPT/HCPCS: 36415; 81514; 82728; 83540; 84466; 85025; 86592; 86695; 86696; 86803; 87389; 87491; 87591; 87661